=== PATIENT | female | born 1985 | race Caucasian/White ===

== ENCOUNTER → 2016-12-19 | Outpatient (CLI) | payer OTHER | LOC: FIMAGING 13:20 | PROVIDERS: ATTEND Advanced Practice Midwife | DX: O20.9 Hemorrhage in early pregnancy, unspecified (principal); Z3A.08 8 weeks gestation of pregnancy ==

== ENCOUNTER → 2017-05-02 | Outpatient (CLI) | payer OTHER | LOC: FIMAGING 07:19 | PROVIDERS: ATTEND Advanced Practice Midwife | DX: O35.8XX0 Maternal care for other (suspected) fetal abnormality and damage, not applicable or unspecified (principal); O24.912 Unspecified diabetes mellitus in pregnancy, second trimester; O99.212 Obesity complicating pregnancy, second trimester; Z68.37 Body mass index [BMI] 37.0-37.9, adult; Z3A.25 25 weeks gestation of pregnancy ==

== ENCOUNTER → 2017-05-23 | Outpatient (CLI) | payer OTHER | LOC: FIMAGING 14:15 | PROVIDERS: ATTEND Advanced Practice Midwife | DX: O26.02 Excessive weight gain in pregnancy, second trimester (principal); O26.832 Pregnancy related renal disease, second trimester; Z3A.28 28 weeks gestation of pregnancy ==

== ENCOUNTER 2017-07-29 20:37 | Emergency (ER) | payer OTHER ==
--- NOTE | 2017-07-29 21:00 | CPEKG ---
Heart Rate: 98 RR Interval: 612 P-R Interval: 192 QRSD Interval: 84 QT Interval: 344 QTC Interval: 440 P Clarissa: 52 QRS Clarissa: -13 T Wave Clarissa: 57 EKG Severity - NORMAL ECG - EKG Impression: SINUS RHYTHM Electronically Signed By: Noemi Garnett 29-Jul-2017 23:17:34
[2017-07-29] MEDS ORDERED: MAG HYDROX/AL HYDROX/SIMETH 30 ML UDCUP PO ONE (21:20)
[2017-07-29] MEDS ORDERED: HYOSCYAMINE SULFATE 0.125 MG TAB PO ONE (21:20)
[2017-07-29] MEDS ORDERED: LIDOCAINE 2% VISCOUS 15 ML UDCUP PO ONE (21:20)
--- NOTE | 2017-07-29 22:03 | EDPHY ---
H & P Time Seen by Provider: 07/29/17 21:00 HPI/ROS: CHIEF COMPLAINT: Epigastric pain HISTORY OF PRESENT ILLNESS: 32-year-old female 38 weeks presents with epigastric pain. She ate lunch at noon today. At 1:00 p.m. She developed mid back pain, radiating to her epigastrium. The pain was intense at 1st and unrelieved with Gas-X. She took a nap, but when she awoke the pain was still there. She currently feels much better, but still has a small amount of pain. The pain increases slightly with deep inspiration, but she does not have chest pain. She has similar episode 2 days ago that occurred after eating and resolved in approximately 1 hr. REVIEW OF SYSTEMS: Constitutional: No fever, no chills Eyes: No visual changes ENT: No sore throat Respiratory: No cough, no shortness of breath Cardiac: No chest pain Genitourinary: No hematuria, no dysuria Musculoskeletal: No leg pain or swelling Skin: No rash Neurological: No headache, no weakness Psychiatric: No depression Past Medical/Surgical History: Denies Social History: Smoking Status: Never smoked Physical Exam: General Appearance: Alert, pleasant Eyes: Pupils equal and round, no conjunctival pallor or injection ENT, Mouth: Mucous membranes moist Neck: Normal inspection Respiratory: Lungs are clear to auscultation Cardiovascular: Regular rate and rhythm Gastrointestinal: Abdomen is soft, gravid, mild epigastric tenderness Neurological: A&O, nonfocal, normal gait Skin: Warm and dry Extremities: Nontender, no pedal edema Psychiatric: Mood and affect normal Constitutional: Initial Vital Signs Temperature (C) 36.7 C 07/29/17 20:40 Heart Rate 108 H 07/29/17 20:40 Respiratory Rate 20 07/29/17 20:40 Blood Pressure 127/87 H 07/29/17 20:40 O2 Sat (%) 94 07/29/17 20:40 O2 Delivery Mode Room Air Allergies/Adverse Reactions: No Known Allergies Allergy (Unverified 07/29/17 20:51) Home Medications: Medication Instructions Recorded Ferrous Sulfate [Slow Fe] 160 mg PO 07/29/17 Vit27&Calcium/Iron/FA 1 each PO DAILY 07/29/17 [ Rx 1 Tablet (RX)] Medical Decision Making - Diagnostics EKG Interpretation: EKG interpreted by me reveals normal sinus rhythm, rate 98, no ST or T segment changes. Interpretation: Normal EKG Imaging Results: RUQ sono: multiple gallstones, normal GB wall thickness and normal CBD Imaging: Discussed imaging studies w/ credit historian Radiologist, I viewed and interpreted images myself ED Course/Re-evaluation: This patient presents with epigastric pain radiating to her back. A GI cocktail was given. The GI cocktail did not initially relieve her pain, but when I reassessed her, the pain was completely gone. Abdomen is soft and nontender. Labs sent to r/o alternative etiology such as gallstones/ pancreatitis. 1030pm: Elevated LFT's, including elevated alk phos. GB sono ordered. Right upper quadrant ultrasound reveals gallstones, without evidence of cholecystitis or CBD stone. The patient's pain has completely resolved. Abdomen is soft and nontender. I feel that she is safe and stable for discharge home. Dietary instructions given. f/u enrollment management director and surgery. She will return for persistent pain, vomiting, fever or any concerns. Differential Diagnosis: Differential diagnosis includes though it is not limited to appendicitis, cholecystitis, diverticulitis, pyelonephritis, bowel perforation, small bowel obstruction. - Data Points Laboratory Results: Laboratory Results 07/29/17 20:57 07/29/17 20:57 Medications Given: Discontinued Medications Al Hydroxide/Mg Hydroxide (Maalox Susp) 30 ml PO ONCE ONE Stop: 07/29/17 21:21 Last Admin: 07/29/17 21:28 Dose: 30 ml Hyoscyamine Sulfate (Levsin, Hyomax-Sl) 0.25 mg PO ONCE ONE Stop: 07/29/17 21:21 Last Admin: 07/29/17 21:28 Dose: 0.25 mg Lidocaine (Lidocaine 2% Viscous) 15 ml PO ONCE ONE Stop: 07/29/17 21:21 Last Admin: 07/29/17 21:28 Dose: 15 ml Departure - Departure Disposition: Home, Routine, Self-Care Clinical Impression: Cholelithiasis Qualifiers: Cholelithiasis location: gallbladder Cholecystitis presence: without cholecystitis Biliary obstruction: without biliary obstruction Qualified Code(s) : K80.20 - Calculus of gallbladder without cholecystitis without obstruction Condition: Good Instructions: Biliary Colic (ED), Gallstones (ED), Acute Abdominal Pain (ED) Additional Instructions: Avoid fatty and spicy foods. Return for fever, vomiting, persistent pain or any concerns. Referrals: HOLLIE CHRISTIANSON [Other] - As per Instructions (Call to make an appointment.) Reinaldo Fishman MD [Medical Doctor] - As per Instructions (Call to make an appointment.)
[2017-07-29 22:08] LABS: PLATELET COUNT 318 10^3/uL (150-400)
[2017-07-29 23:44] VITALS: BP 128/83
== END 2017-07-29 23:44 | disposition home or self-care (01) ==
DX: O99.613 Diseases of the digestive system complicating pregnancy, third trimester (principal); K80.20 Calculus of gallbladder without cholecystitis without obstruction; Z3A.38 38 weeks gestation of pregnancy

== ENCOUNTER 2017-08-12 14:46 | Inpatient (IN) | payer OTHER ==
[2017-08-12] MEDS ORDERED: LR 1,000 ML IV PRN (15:42)
[2017-08-12] MEDS ORDERED: OLIVE OIL 118 ML BTL MISC PRN (15:42)
[2017-08-12] MEDS ORDERED: AMMONIA AROMATIC 1 EACH AMP IH PRN (15:42)
[2017-08-12] MEDS ORDERED: LIDOCAINE 1% 300 MG/30 ML SDV SC PRN (15:42)
[2017-08-12] MEDS ORDERED: EPSOM SALT 454 GM TP PRN (15:42)
[2017-08-12] MEDS ORDERED: TERBUTALINE SULFATE 1 MG/ML VIAL IV PRN (15:42)
[2017-08-12] MEDS ORDERED: MISOPROSTOL 200 MCG TAB PO PRN (15:42)
--- NOTE | 2017-08-12 15:51 | PDGENHP ---
History and Physical History and Physical: CARE: [facility] HPI: Patient is a 31 yo G 1 P 0 at 40.2 weeks ega who presents to L&D with painful contractions that started at 0600 this am. She states baby has been active and denies LOF or vaginal bleeding. She is breathing well through contractions that are every 4 minutes and palpate moderate. EDC: 08/10/2017 which is based on ultrasound at 6.4 weeks ega. Her is complicated by: - h/o "borderline" diabetes and was taking Metformin due to elevated HGB A1C prior to - Metformin d/cd during . Initial 1 hour gtt 1st trimester was 160, but 3 hour gtt was WNL x2 (1st/3rd trimester) - 2 VC - dilated pelvis bilaterally resolved by 28 weeks. Growth scans WNL - last done at 28 weeks was 69th% for weight. Review of Systems: Constitutional: Denies any fever, chills, or fatigue HEENT: denies any visual changes, difficulty swallowing, hearing loss Cardiovascular: Denies any chest pain, palpitations, leg swelling Respiratory: denies any cough, wheezing, or shortness of breathe GI: Denies any nausea, vomiting, diarrhea, constipation : denies any dysuria, urgency, frequency, vaginal bleeding Musculoskeletal: denies any muscle or bone pain Skin: denies any rashes Neuro: denies any headache, seizures, lightheadedness, dizziness, or loss of consciousness Psychiatric: denies any depression, anxiety, or SI/HI thoughts HISTORY: Previous OB history: none Past medical history: "borderline" diabetes -tx with metformin prior to , h/o exercise induced asthma - resolved now Past surgical history: none Medications: PNV Allergies (list reaction): NKDA LABS: Rh: O pos ABS: Neg Rubella: Immune HbsAg: NR HIV: NR VDRL: NR 1hr: 1st trim 160 - 3 hour WNL X2 GC: Neg Chlamydia: Neg Pap: Normal GBS: pos BMI: (prepreg) 27 PHYSICAL EXAM: Constitutional: WN, A&Ox3 HEENT: normocephalic atraumatic, supple Heart: RRR, no murmur Chest: CTA-B Abdomen: Soft, nontender, gravid SVE: 5/80/-2 vertex Extremities: small edema, negative ursula's sign Neuro: grossly normal Psych: normal affect assessment: Reassuring FHTs, baseline 135 +accels, no decels, moderate variability Contractions: toco q 4-5 Assessment: 1) 31 yo G 1 P 0 with IUP@ 40.2 weeks ega 2) spontaneous labor with intact membranes 3) GBS pos 4) Cat 1 FHR tracing Plan: 1) Admit to L&D 2) Intermittent monitoring per protocol after reactive NST 3) Diet as tolerated 4) Pain management PRN as patient desires - is planning unmedicated 5) Anticipate
[2017-08-12] MEDS ORDERED: AMPICILLIN SODIUM 2 GM in STERILE WATER INJ 25 ML IV ONE (16:00)
[2017-08-12] MEDS ORDERED: OXYTOCIN/NORMAL SALINE 20 UNIT/1,000 ML BAG IV ONE (16:13)
[2017-08-12 16:19] LABS: PLATELET COUNT 310 10^3/uL (150-400)
[2017-08-12] MEDS: IBUPROFEN 600 MG TAB PO PRN (19:59)
[2017-08-12] MEDS ORDERED: ACETAMINOPHEN 325 MG TAB PO PRN (22:10)
[2017-08-12] MEDS ORDERED: HYDROCODONE/APAP 5/325 TAB PO PRN (22:10)
[2017-08-12] MEDS ORDERED: HYDROCORTISONE 0.5% CREAM TP PRN (22:10)
--- NOTE | 2017-08-12 22:15 | PDMN ---
Medical Necessity Medical necessity: C/M review: Patient meets INPT criteria under MCG Vaginal delivery: viable male . CNM anticipates > 2 MN LOS for eval and TX of above.
[2017-08-12] MEDS: AMPICILLIN SODIUM 1 GM in STERILE WATER INJ 15 ML IV SCH (22:55)
--- NOTE | 2017-08-12 22:58 | OBDEL ---
Info Type: Vaginal Presentation at Delivery: Vertex L&D Analgesia/Anesthesia Type: Local GBS+: Yes Antibiotic Used for + GBS: Ampicillin Intrapartum Medications: Generic Name Dose Route Start Last Admin Trade Name Dustin PRN Reason Stop Dose Admin Ibuprofen 600 mg 08/12/17 15:42 08/12/17 19:59 Motrin PO 02/08/18 15:41 600 mg Q6HRS PRN Administration post , inflammation Discontinued Medications Generic Name Dose Route Start Last Admin Trade Name Dustin PRN Reason Stop Dose Admin Ampicillin Sodium 2 gm/ 25 mls @ 100 mls/hr 08/12/17 16:00 08/12/17 16:21 Sterile Water IV 08/12/17 16:14 25 mls ONCE ONE Administration Protocol Indications for Delivery: Spontaneous Labor Vaginal Delivery - Delivery Provider Delivery Physician/CNM: Rajani Breaux Proctoring Provider: Huong Zaidi - Labor and Delivery Onset of Contractions Date: 08/12/17 Onset of Contractions Time: 13:00 Onset of Contractions Type: Spontaneous Rupture of Membranes Date: 08/12/17 Rupture of Membranes Time: 16:00 Rupture of Membranes Type: Spontaneous Amniotic Fluid Color: Clear Dilation Complete Date: 08/12/17 Dilation Complete Time: 18:37 Placenta Delivery Date: 08/12/17 Placenta Delivery Time: 19:07 Total Hours of Labor: 6 Laceration: 2nd Degree Repair: 3-0, Vicryl Vaginal Sponge Count Correct: Yes Vaginal Needle Count Correct: Yes Vaginal Sweep Performed: No EBL: 400 Delivery Events: None Cord Gases: Cord Gases Cord Blood PCO2 TNP 08/12/17 18:57 Cord Base Excess TNP 08/12/17 18:57 Cord ABG pH TNP 08/12/17 18:57 Cord VBG pH 7.38 (7.20-7.42) 08/12/17 18:57 - Medications Labor Augmentation/Induction Methods Used: None Operative Report - Delivery Cord Gases: Cord Gases Cord Blood PCO2 TNP 08/12/17 18:57 Cord Base Excess TNP 08/12/17 18:57 Cord ABG pH TNP 08/12/17 18:57 Cord VBG pH 7.38 (7.20-7.42) 08/12/17 18:57 Reva Data VANESSA: 08/10/17 Gestational Age: 40 week(s) and 2 day(s) Sandhu Delivery Date: 08/12/17 Delivery Time: 18:51 Sex of Infant: Male Reva Weight (gm): 3126 g Score (1 Min): 7 Score (5 Min): 9 ICD10 Worksheet Patient Problems: Problems Problem Status Onset Vaginal delivery Acute Cholelithiasis Acute - ICD10 Problem Qualifiers (1) Vaginal delivery
[2017-08-13] MEDS: AMPICILLIN SODIUM 1 GM in STERILE WATER INJ 15 ML IV SCH ×3 (02:10→13:53)
[2017-08-13] MEDS: IBUPROFEN 600 MG TAB PO PRN ×2 (09:47→18:17)
--- NOTE | 2017-08-13 11:51 | OBPP ---
Progress Note Assessment/Plan: Assessment: 32 y/o PPD #1 s/p Plan: Bifera BID for anemia. support and routine PPC. 08/13/17 11:50 Subjective/ Course: 08/13/17 11:48 Pt is doing well today. She has good pain control with Ibuprofen. She is ambulating and voiding without difficulty. Breast feeding is going well. Objective: 08/13/17 06:35 Patient ABO/Rh O POSITIVE 08/12/17 15:50 Temp Pulse Resp BP Pulse Ox 36.3 C 94 16 104/73 95 08/13/17 08:35 08/13/17 08:35 08/13/17 08:35 08/13/17 08:35 08/13/17 08:35 Uterine Position/Fundal Height: Umbilicus -2 Uterine Tone: Firm Physical Exam - Physical Exam General Appearance: WD/WN, alert, no apparent distress Neck: non-tender, full range of motion, supple Respiratory: chest non-tender, lungs clear, normal breath sounds Cardiac/Chest: regular rate, rhythm Abdomen: normal bowel sounds Extremities: swelling (no), Leticia's sign (neg)
[2017-08-13] MEDS: DOCUSATE SODIUM 100 MG CAP PO PRN (22:37)
[2017-08-13] MEDS: IRON POLYSAC/IRON HEME 28 MG TAB PO SCH (22:37)
[2017-08-14 07:45] VITALS: BP 117/80
[2017-08-14] MEDS: IRON POLYSAC/IRON HEME 28 MG TAB PO SCH ×2 (10:52→17:53)
--- NOTE | 2017-08-14 11:50 | OBPP ---
Progress Note Assessment/Plan: Assessment: 32 PPD#2 s/p - doing well, desires homegoing. Plan:dc home -see dc summary, all pp dc instructions reviewed, including ssx pp depression. Gauri Cifuentes MD, FACOG 08/14/17 11:47 Subjective/ Course: 08/13/17 11:48 Pt is doing well today. She has good pain control with Ibuprofen. She is ambulating and voiding without difficulty. Breast feeding is going well. 08/14/17 11:48 Doing well, working on latch with - would like to meet with today prior to going home. Voiding fine, mod amt lochia. 08/14/17 11:50 Objective: 08/13/17 06:35 Patient ABO/Rh O POSITIVE 08/12/17 15:50 Temp Pulse Resp BP Pulse Ox 36.4 C 78 18 117/80 93 08/14/17 07:44 08/14/17 07:44 08/14/17 07:44 08/14/17 07:44 08/14/17 07:44 gen - pleasant, NAD CV - RRR chest - CTAB abd - + BS, fundus firm at u-2 calves - NT, trace edema Uterine Position/Fundal Height: Umbilicus -2 Uterine Tone: Firm
[2017-08-14] MEDS: IBUPROFEN 600 MG TAB PO PRN (14:49)
[2017-08-14] MEDS: DOCUSATE SODIUM 100 MG CAP PO PRN (17:53)
== END 2017-08-14 18:00 | disposition home or self-care (01) | DRG 775 ==
LOC: FLD 14:46 → FOB 21:20
PROVIDERS: ADMIT Advanced Practice Midwife; ATTEND Obstetrics & Gynecology
PROC: 10E0XZZ Delivery of Products of Conception, External Approach (ICD-10-PCS; principal; 2017-08-12)
DX: O80 Encounter for full-term uncomplicated delivery (principal); Z3A.40 40 weeks gestation of pregnancy; Z37.0 Single live birth
CPT/HCPCS: J0290; J2590